=== PATIENT | male | born 1960 | race Two or more races ===

== ENCOUNTER 2024-10-11 14:52 | Inpatient (IN) | payer OTHER ==
[~2024-10-11] VITALS: Ht 172.7 cm; Wt 89.8 kg
[~2024-10-11 14:52] MED LIST: GLIMEPIRIDE4 MG; LOSARTAN POTASS50 MG; METFORMIN HCL1000 M2 PO
[2024-10-11] MEDS ORDERED: SYNTHROID150 MCG PO (15:29)
[2024-10-11] MEDS ORDERED: FARXIGA10 MG PO (15:30)
[2024-10-11] MEDS ORDERED: 0.9 % SODIUM CHLORIDE 1,000 ML IV SCH (15:46)
[2024-10-11 16:15] LABS: HEMATOCRIT 40.4 % (39.0-48.0); HEMOGLOBIN 14.5 g/dL (13-16.00); MEAN CELL VOLUME 94.7 fL (80.0-100.00); MEAN CORPUSCULAR HEMOGLOBIN 33.9 pg (27.00-32.0); MEAN CORPUSCULAR HGB CONC 35.8 g/dl (32.0-36.0); RED BLOOD COUNT 4.26 M/uL (4.00-6.00); RED CELL DISTRIBUTION WIDTH 13.9 % (11.5-14.5)
[2024-10-11 16:35] LABS: INR 1.05; PARTIAL THROMBOPLASTIN TIME 26.1 SECONDS (22.0-34.0); PROTHROMBIN TIME 11.4 SECONDS (9.0-11.5)
[2024-10-11 16:41] LABS: ALBUMIN 4.2 gm/dL (3.4-5.0); BILIRUBIN TOTAL 1.28 mg/dL (0.3-1.2); CALCIUM 9.6 mg/dL (8.5-10.1); CREATININE SERUM 0.86 mg/dL (0.70-1.30); GFR 89.53; GLOBULINA 3.2 G/DL (2.4-3.5); POTASSIUM 3.84 mEq/L (3.5-5.1); TOTAL PROTEIN 7.4 gm/dL (6.4-8.2)
[2024-10-11 16:50] LABS: PLATELET COUNT 105 K/uL (150-450)
[2024-10-11] MEDS ORDERED: RINGERS SOLUTION,LACTATED 1,000 ML IV SCH (17:45)
[2024-10-11] MEDS ORDERED: POLYETHYLENE GLYCOL 3350 17 GM BLIST.PACK PO ONE (18:00)
[2024-10-11 18:36] VITALS: BP 149/77; O2SAT 100
[2024-10-11 20:18] LABS: COL EPI 94 SECONDS (82-175)
[2024-10-12 00:42] VITALS: BP 129/60; O2SAT 96
[2024-10-12 05:27] VITALS: O2SAT 98
[2024-10-12] MEDS ORDERED: CEFTRIAXONE SODIUM 2,000 MG VIAL IV ONE (12:45)
[2024-10-12] MEDS ORDERED: METRONIDAZOLE/SODIUM CHLORIDE 500 MG/100 ML PIGGYBACK IV ONE (12:45)
[2024-10-12] MEDS ORDERED: MORPHINE SULFATE 4 MG/ML CARTRIDGE IV PRN (13:30)
[2024-10-12] MEDS ORDERED: ONDANSETRON HCL 2 MG/ML VIAL IV PRN (13:30)
[2024-10-12] MEDS ORDERED: RINGERS SOLUTION,LACTATED 1,000 ML IV SCH (13:30)
[2024-10-12] MEDS ORDERED: OxyCODONE HCL 5 MG TABLET (ROXICODONE) PO PRN (13:30)
[2024-10-12] MEDS ORDERED: MORPHINE SULFATE 4 MG/ML VIAL IV ONE ×2 (14:05→14:35)
[2024-10-12] MEDS ORDERED: MORPHINE SULFATE 2 MG/ML CARTRIDGE IV ONE (15:50)
[2024-10-12 16:50] VITALS: BP 122/58; O2SAT 96
[2024-10-12] MEDS ORDERED: METRONIDAZOLE/SODIUM CHLORIDE 500 MG/100 ML PIGGYBACK IV SCH (17:00)
[2024-10-12] MEDS ORDERED: GABAPENTIN 300 MG CAPSULE PO SCH (17:00)
[2024-10-12] MEDS ORDERED: HYOSCYAMINE SULFATE 0.125 MG TAB.SUBL SL SCH (17:00)
[2024-10-12] MEDS ORDERED: TAMSULOSIN HCL 0.4 MG CAP PO SCH (17:00)
[2024-10-12] MEDS ORDERED: FAMOTIDINE/PF 20 MG/2 ML VIAL IV PUSH SCH (17:00)
[2024-10-12] MEDS ORDERED: LACTOBACILLUS ACIDOPHILUS 1 CAP CAP PO SCH (17:00)
[2024-10-12 17:08] LABS: HEMATOCRIT 39.8 % (39.0-48.0); HEMOGLOBIN 13.6 g/dL (13-16.00); MEAN CELL VOLUME 96.7 fL (80.0-100.00); MEAN CORPUSCULAR HGB CONC 34.1 g/dl (32.0-36.0); RED BLOOD COUNT 4.12 M/uL (4.00-6.00); RED CELL DISTRIBUTION WIDTH 13.7 % (11.5-14.5)
[2024-10-12 17:12] LABS: PLATELET COUNT 88 K/uL (150-450)
[2024-10-12] MEDS ORDERED: ACETAMINOPHEN 500 MG GEL..CAP PO SCH (18:00)
[2024-10-12] MEDS ORDERED: CIPROFLOXACIN IN 5 % DEXTROSE 400 MG/200 ML PIGGYBAG IV SCH (21:00)
[2024-10-12 21:36] VITALS: O2SAT 97
[2024-10-12 23:59] VITALS: O2SAT 93
[2024-10-13] VITALS (9 sets, daily range): BP systolic 126–136; BP diastolic 61–65; O2SAT 90–99
[2024-10-13] MEDS ORDERED: INSULIN LISPRO 1,000 UNIT/10 ML UNITS SUBCUTANEO PRN (01:45)
[2024-10-13] MEDS ORDERED: DEXTROSE 50 % IN WATER 0.5 G/ML DISP.SYRIN IV PRN (01:45)
[2024-10-13 07:58] LABS: HEMATOCRIT 38.5 % (39.0-48.0); HEMOGLOBIN 13.6 g/dL (13-16.00); MEAN CELL VOLUME 95.4 fL (80.0-100.00); MEAN CORPUSCULAR HEMOGLOBIN 33.8 pg (27.00-32.0); MEAN CORPUSCULAR HGB CONC 35.4 g/dl (32.0-36.0); RED BLOOD COUNT 4.03 M/uL (4.00-6.00); RED CELL DISTRIBUTION WIDTH 13.5 % (11.5-14.5)
[2024-10-13 08:27] LABS: ALBUMIN 3.3 gm/dL (3.4-5.0); CALCIUM 8.4 mg/dL (8.5-10.1); CREATININE SERUM 0.94 mg/dL (0.70-1.30); GFR 80.79; MAGNESIUM 1.7 mg/dL (1.8-2.4); PHOSPHOROUS 3.6 mg/dL (2.5-4.9); POTASSIUM 4.49 mEq/L (3.5-5.1)
[2024-10-13 09:05] LABS: PLATELET COUNT 106 K/uL (150-450)
[2024-10-13] MEDS ORDERED: LEVOTHYROXINE SODIUM 100 MCG TABLET PO NR (12:15)
[2024-10-13] MEDS ORDERED: ENOXAPARIN SODIUM 40 MG/0.4 ML SYRINGE SUBCUTANEO SCH (17:00)
[2024-10-14 00:45] VITALS: BP 115/67; O2SAT 97
[2024-10-14 04:19] VITALS: O2SAT 90
[2024-10-14] MEDS ORDERED: LEVOTHYROXINE SODIUM 100 MCG TABLET PO SCH (06:00)
[2024-10-14] MEDS ORDERED: LEVOTHYROXINE SODIUM 125 MCG TABLET PO SCH (06:00)
[2024-10-14 08:00] VITALS: BP 144/73; O2SAT 99
[2024-10-14] MEDS ORDERED: LOSARTAN POTASSIUM 50 MG TABLET PO SCH (09:00)
[2024-10-14] MEDS ORDERED: ENOXAPARIN SODIUM 40 MG/0.4 ML SYRINGE SUBCUTANEO SCH (09:00)
[2024-10-14 16:00] VITALS: BP 136/65; O2SAT 99
[2024-10-14] MEDS ORDERED: POLYETHYLENE GLYCOL 3350 17 GM BLIST.PACK PO SCH (17:00)
[2024-10-14 21:00] VITALS: O2SAT 96
[2024-10-15 00:13] VITALS: BP 118/65; O2SAT 98
[2024-10-15 00:15] VITALS: O2SAT 90
[2024-10-15 02:54] VITALS: O2SAT 97
[2024-10-15 07:44] LABS: HEMATOCRIT 33.7 % (39.0-48.0); HEMOGLOBIN 12.1 g/dL (13-16.00); MEAN CELL VOLUME 94.8 fL (80.0-100.00); MEAN CORPUSCULAR HEMOGLOBIN 34.2 pg (27.00-32.0); RED BLOOD COUNT 3.55 M/uL (4.00-6.00); RED CELL DISTRIBUTION WIDTH 13.3 % (11.5-14.5)
[2024-10-15 07:50] LABS: PLATELET COUNT 69 K/uL (150-450)
[2024-10-15 08:00] VITALS: BP 133/85; O2SAT 96
[2024-10-15 08:29] LABS: ALBUMIN 2.9 gm/dL (3.4-5.0); BILIRUBIN TOTAL 1.76 mg/dL (0.3-1.2); CALCIUM 8.2 mg/dL (8.5-10.1); CREATININE SERUM 0.73 mg/dL (0.70-1.30); GFR 108.17; MAGNESIUM 1.6 mg/dL (1.8-2.4); POTASSIUM 4.05 mEq/L (3.5-5.1); TOTAL PROTEIN 4.9 gm/dL (6.4-8.2)
[2024-10-15 08:51] LABS: PHOSPHOROUS 1.9 mg/dL (2.5-4.9)
[2024-10-15] MEDS ORDERED: POTASSIUM PHOS,M-BASIC-D-BASIC 3 MM/ML VIAL IV NR (09:45)
[2024-10-15] MEDS ORDERED: TAMS0.4C PO (09:46)
[2024-10-15] MEDS ORDERED: INTESTINEX680 M1 PO (09:47)
[2024-10-15] MEDS ORDERED: HYOSCYAMINE0.125 M1 SL (09:47)
== END 2024-10-15 16:26 | disposition home or self-care (01) | DRG 331 ==
LOC: ER 14:54 → EDBD 14:54 → ER 14:54 → SURH 18:40
PROVIDERS: Emergency Medicine; Internal Medicine; ADMIT Surgery; ATTEND Surgery
PROC: 0DBP4ZZ Excision of Rectum, Percutaneous Endoscopic Approach (ICD-10-PCS; 2024-10-12)
PROC: 07BB4ZZ Excision of Mesenteric Lymphatic, Percutaneous Endoscopic Approach (ICD-10-PCS; 2024-10-12)
PROC: 07BC4ZZ Excision of Pelvis Lymphatic, Percutaneous Endoscopic Approach (ICD-10-PCS; 2024-10-12)
PROC: 0DNW4ZZ Release Peritoneum, Percutaneous Endoscopic Approach (ICD-10-PCS; 2024-10-12)
PROC: 0DJD8ZZ Inspection of Lower Intestinal Tract, Via Natural or Artificial Opening Endoscopic (ICD-10-PCS; 2024-10-12)
PROC: 4A12X4Z Monitoring of Cardiac Electrical Activity, External Approach (ICD-10-PCS; 2024-10-12)
PROC: 0DTN4ZZ Resection of Sigmoid Colon, Percutaneous Endoscopic Approach (ICD-10-PCS; principal; 2024-10-12 14:00)
DX: C20 Malignant neoplasm of rectum (principal); R59.0 Localized enlarged lymph nodes; K66.0 Peritoneal adhesions (postprocedural) (postinfection); D69.6 Thrombocytopenia, unspecified; E83.42 Hypomagnesemia; K74.60 Unspecified cirrhosis of liver; E11.9 Type 2 diabetes mellitus without complications; I10 Essential (primary) hypertension; E03.9 Hypothyroidism, unspecified; Z79.84 Long term (current) use of oral hypoglycemic drugs

== ENCOUNTER 2024-11-15 05:28 | Day surgery (SDC) | payer OTHER ==
[2024-11-12 14:19] VITALS: BP 126/83
[~2024-11-15] VITALS: Ht 172.7 cm; Wt 83.9 kg
[~2024-11-15 05:28] MED LIST changes: +FARXIGA10 MG PO; +HYOSCYAMINE0.125 M1 SL; +INTESTINEX680 M1 PO; +SYNTHROID150 MCG PO; +TAMS0.4C PO
[2024-11-15] MEDS ORDERED: CEFAZOLIN SODIUM 1,000 MG VIAL ONE (08:21)
[2024-11-15] MEDS ORDERED: HEPARIN SODIUM,PORCINE/PF 100 UNIT/ML SYRINGE IV ONE (08:23)
[2024-11-15] MEDS ORDERED: BUPIVACAINE HCL/MPF 0.5% 30ML VIAL ONE (08:28)
[2024-11-15] MEDS ORDERED: TRAM1TAB98 PO (08:29)
[2024-11-15] MEDS ORDERED: BUPIVACAINE HCL 30 ML VIAL IJ ONE (09:00)
[2024-11-15] MEDS ORDERED: LIDOCAINE HCL 1%/EPINEPHRINE 20ML VIAL IJ ONE (09:00)
[2024-11-15] MEDS ORDERED: CEFAZOLIN SODIUM 1,000 MG VIAL IV ONE (09:00)
== END 2024-11-15 11:15 | disposition home or self-care (01) ==
LOC: CIR.AMB 05:28
PROVIDERS: ATTEND Surgery
DX: C20 Malignant neoplasm of rectum (principal); Z88.2 Allergy status to sulfonamides; I10 Essential (primary) hypertension; E11.9 Type 2 diabetes mellitus without complications; E03.8 Other specified hypothyroidism

== ENCOUNTER 2025-01-09 17:30 | Inpatient (IN) | payer OTHER ==
[~2025-01-09] VITALS: Ht 172.7 cm; Wt 74.4 kg
[~2025-01-09 17:30] MED LIST changes: +TRAM1TAB98 PO
[2025-01-09] MEDS ORDERED: 0.9 % SODIUM CHLORIDE 1,000 ML IV SCH (19:30)
[2025-01-09 20:40] LABS: HEMATOCRIT 33.6 % (39.0-48.0); MEAN CELL VOLUME 94.8 fL (80.0-100.00); MEAN CORPUSCULAR HEMOGLOBIN 33.9 pg (27.00-32.0); MEAN CORPUSCULAR HGB CONC 35.8 g/dl (32.0-36.0); RED BLOOD COUNT 3.54 M/uL (4.00-6.00)
[2025-01-09] MEDS ORDERED: BARIUM SULFATE 450 ML ORAL.SUSP PO ONE (20:42)
[2025-01-09 20:52] LABS: ALBUMIN 2.7 gm/dL (3.4-5.0); BILIRUBIN TOTAL 2.02 mg/dL (0.3-1.2); CALCIUM 8.1 mg/dL (8.5-10.1); CREATININE SERUM 0.65 mg/dL (0.70-1.30); GFR 123.28; GLOBULINA 2.6 G/DL (2.4-3.5); POTASSIUM 3.37 mEq/L (3.5-5.1); TOTAL PROTEIN 5.3 gm/dL (6.4-8.2)
[2025-01-09 21:14] LABS: PLATELET COUNT 115 K/uL (150-450); RED CELL DISTRIBUTION WIDTH 16.6 % (11.5-14.5)
[2025-01-10] MEDS ORDERED: PIPERACILLIN/TAZOBACTAM SODIUM 3.375 GM in 0.9 % SODIUM CHLORIDE 100 ML IV SCH (02:50)
[2025-01-10] MEDS ORDERED: ENOXAPARIN SODIUM 80 MG/0.8 ML SYRINGE SUBCUTANEO STA (02:50)
[2025-01-10] MEDS ORDERED: MEPERIDINE HCL/PF 50 MG/ML VIAL IM PRN (03:00)
[2025-01-10] MEDS ORDERED: ENOXAPARIN SODIUM 80 MG/0.8 ML SYRINGE SUBCUTANEO ONE (03:04)
[2025-01-10] MEDS ORDERED: PIPERACILLIN/TAZOBACTAM SODIUM 3.375 GM VIAL IV ONE (03:04)
[2025-01-10] MEDS ORDERED: FLUCONAZOLE 150 MG TABLET PO SCH (12:08)
[2025-01-10] MEDS ORDERED: ONDANSETRON HCL 2 MG/ML VIAL IV PRN (12:15)
[2025-01-10] MEDS ORDERED: DIPHENHYDRAMINE HCL 50 MG/ML VIAL 1ML IV ONE (13:00)
[2025-01-10] MEDS ORDERED: HYOSCYAMINE SULFATE 0.125 MG TAB.SUBL SL SCH (13:00)
[2025-01-10] MEDS ORDERED: fentaNYL CITRATE 50 MCG/ML AMPUL IV ONE (13:00)
[2025-01-10] MEDS ORDERED: MIDAZOLAM HCL 2 MG/2 ML VIAL IV ONE (13:00)
[2025-01-10] MEDS ORDERED: ANIDULAFUNGIN 100 MG VIAL IV NR (16:00)
[2025-01-10] MEDS ORDERED: PANTOPRAZOLE SODIUM 40 MG/VIAL VIAL IV SCH (17:00)
[2025-01-10 17:10] VITALS: BP 104/55; O2SAT 99
[2025-01-10 18:22] LABS: URINE APPEARANCE Clear; URINE BILIRRUBIN Negative (NEGATIVE); URINE BLOOD Negative; URINE COLOR Yellow; URINE LEUKOCYTE Negative; URINE NITRATE Negative; URINE PROTEIN Negative (NEGATIVE)
[2025-01-10 18:25] LABS: URINE BACTERIA 7.3 uL (0.0-1933); URINE EPITHELIAL CELLS 3.6 uL (0.0-38.8); URINE RBC 2.9 uL (0.0-20.8)
[2025-01-10 18:29] LABS: URINE GLUCOSE >=1000 MG/DL (NEGATIVE); URINE KETONE 80 (NEGATIVE); URINE WBC 1.5 uL (0.0-23.2)
[2025-01-11 00:28] VITALS: BP 115/64; O2SAT 96
[2025-01-11 06:52] LABS: HEMATOCRIT 32.6 % (39.0-48.0); HEMOGLOBIN 11.8 g/dL (13-16.00); MEAN CELL VOLUME 96.6 fL (80.0-100.00); MEAN CORPUSCULAR HEMOGLOBIN 34.9 pg (27.00-32.0); MEAN CORPUSCULAR HGB CONC 36.1 g/dl (32.0-36.0); RED BLOOD COUNT 3.38 M/uL (4.00-6.00); RED CELL DISTRIBUTION WIDTH 17.9 % (11.5-14.5)
[2025-01-11 07:06] LABS: PLATELET COUNT 101 K/uL (150-450)
[2025-01-11 07:09] LABS: ALBUMIN 2.3 gm/dL (3.4-5.0); BILIRUBIN TOTAL 1.44 mg/dL (0.3-1.2); CALCIUM 7.6 mg/dL (8.5-10.1); CREATININE SERUM 0.59 mg/dL (0.70-1.30); GFR 137.86; MAGNESIUM 1.7 mg/dL (1.8-2.4); PHOSPHOROUS 3.3 mg/dL (2.5-4.9); POTASSIUM 3.58 mEq/L (3.5-5.1); TOTAL PROTEIN 4.3 gm/dL (6.4-8.2)
[2025-01-11] MEDS ORDERED: DEXTROSE 50 % IN WATER 0.5 G/ML DISP.SYRIN IV PRN (07:15)
[2025-01-11] MEDS ORDERED: INSULIN LISPRO 1,000 UNIT/10 ML UNITS SUBCUTANEO PRN (07:15)
[2025-01-11 07:19] LABS: C-REACTIVE PROTEIN 2.02 MG/DL (0.00-0.29)
[2025-01-11 07:31] LABS: AMYLASE 74 U/L (25-115); LIPASE 40 U/L (13-75)
[2025-01-11 08:00] VITALS: BP 131/79; O2SAT 98
[2025-01-11 14:57] LABS: URINE APPEARANCE Clear; URINE BILIRRUBIN Negative (NEGATIVE); URINE BLOOD Negative; URINE COLOR Yellow; URINE LEUKOCYTE Negative; URINE NITRATE Negative; URINE PROTEIN Negative (NEGATIVE); URINE UROBILINOGEN 0.2 E.U./dl
[2025-01-11] MEDS ORDERED: DIBUCAINE 30 GM TUBE TOP ONE (15:00)
[2025-01-11 15:01] LABS: URINE RBC 3.6 uL (0.0-20.8); URINE WBC 2.2 uL (0.0-23.2)
[2025-01-11 15:36] LABS: URINE BACTERIA 2.4 uL (0.0-1933); URINE CAST 0.14 uL (0.0-1.40); URINE EPITHELIAL CELLS 1.2 uL (0.0-38.8); URINE GLUCOSE >=1000 MG/DL (NEGATIVE); URINE KETONE 40 (NEGATIVE)
[2025-01-11 16:32] VITALS: BP 123/74; O2SAT 99
[2025-01-11] MEDS ORDERED: POLYETHYLENE GLYCOL 3350 17 GM BLIST.PACK PO SCH (17:00)
[2025-01-11] MEDS ORDERED: LACTOBACILLUS ACIDOPHILUS 1 CAP CAP PO SCH (17:00)
[2025-01-11] MEDS ORDERED: HYDROCORTISONE ACETATE 25 MG/SUPP.RECT SUPP.RECT RECTAL SCH (17:00)
[2025-01-11] MEDS ORDERED: ANIDULAFUNGIN 100 MG VIAL IV SCH (17:00)
[2025-01-11] MEDS ORDERED: ENOXAPARIN SODIUM 40 MG/0.4 ML SYRINGE SUBCUTANEO SCH (17:00)
[2025-01-11 17:14] VITALS: BP 107/68; O2SAT 97
[2025-01-11] MEDS ORDERED: DIPHENHYDRAMINE HCL 50 MG/ML VIAL 1ML ONE (17:20)
[2025-01-11] MEDS ORDERED: DIPHENHYDRAMINE HCL 50 MG/ML VIAL 1ML IV STA (17:21)
[2025-01-12 00:25] VITALS: BP 114/66; O2SAT 98
[2025-01-12] MEDS ORDERED: LEVOTHYROXINE SODIUM 125 MCG TABLET PO SCH (06:00)
[2025-01-12 08:52] VITALS: BP 144/74; O2SAT 100
[2025-01-12 16:00] VITALS: BP 121/67; O2SAT 98
[2025-01-12] MEDS ORDERED: DIPHENHYDRAMINE HCL 50 MG/ML VIAL 1ML IV SCH (17:00)
[2025-01-12] MEDS ORDERED: METHYLPREDNISOLONE SOD SUCC 40 MG VIAL ONE (18:51)
[2025-01-12] MEDS ORDERED: METHYLPREDNISOLONE SOD SUCC 40 MG VIAL IV STA (18:51)
[2025-01-12] MEDS ORDERED: AMINO ACIDS/PROTEIN HYDROLYS 30 ML BLIST.PACK PO SCH (19:08)
[2025-01-12] MEDS ORDERED: FLUCONAZOLE 40 MG/ML SUSP.RECON PO ONE (19:15)
[2025-01-12] MEDS ORDERED: INSULIN GLARGINE,HUM.REC.ANLOG 1,000 UNITS/10 ML UNITS SUBCUTANEO ONE (20:49)
[2025-01-12] MEDS ORDERED: FLUCONAZOLE IN NACL,ISO-OSM 400 MG/200 ML PIGGYBAG IV ONE ×2 (20:53→21:00)
[2025-01-12] MEDS ORDERED: INSULIN GLARGINE,HUM.REC.ANLOG 1,000 UNITS/10 ML UNITS SUBCUTANEO SCH (21:00)
[2025-01-13] VITALS: BP 128/75; O2SAT 96
[2025-01-13 08:10] LABS: INR 1.14; PARTIAL THROMBOPLASTIN TIME 24.6 SECONDS (22.0-34.0); PROTHROMBIN TIME 12.3 SECONDS (9.0-11.5)
[2025-01-13 08:12] LABS: ALBUMIN 2.3 gm/dL (3.4-5.0); BILIRUBIN TOTAL 1.01 mg/dL (0.3-1.2); CALCIUM 7.9 mg/dL (8.5-10.1); CREATININE SERUM 0.61 mg/dL (0.70-1.30); GFR 132.66; GLOBULINA 2.1 G/DL (2.4-3.5); MAGNESIUM 1.6 mg/dL (1.8-2.4); PHOSPHOROUS 2.9 mg/dL (2.5-4.9); POTASSIUM 4.19 mEq/L (3.5-5.1); TOTAL PROTEIN 4.4 gm/dL (6.4-8.2)
[2025-01-13 08:54] LABS: HEMATOCRIT 32.2 % (39.0-48.0); HEMOGLOBIN 11.5 g/dL (13-16.00); MEAN CELL VOLUME 97.6 fL (80.0-100.00); MEAN CORPUSCULAR HEMOGLOBIN 34.9 pg (27.00-32.0); MEAN CORPUSCULAR HGB CONC 35.7 g/dl (32.0-36.0); RED CELL DISTRIBUTION WIDTH 20.7 % (11.5-14.5)
[2025-01-13 09:03] VITALS: BP 115/69; O2SAT 96
[2025-01-13 09:03] LABS: PLATELET COUNT 107 K/uL (150-450)
[2025-01-13] MEDS ORDERED: MAGNESIUM SULFATE IN WATER 50 ML IV NR (13:00)
[2025-01-13 16:00] VITALS: BP 140/76; O2SAT 100
[2025-01-13] MEDS ORDERED: FLUCONAZOLE IN NACL,ISO-OSM 100 ML IV SCH (21:00)
[2025-01-14] VITALS: BP 107/63; O2SAT 97
[2025-01-14 08:00] VITALS: BP 109/66; O2SAT 98
[2025-01-14] MEDS ORDERED: PROTONIX40 MG PO (13:26)
[2025-01-14] MEDS ORDERED: INTESTINEX680 M1 PO (13:26)
== END 2025-01-14 14:39 | disposition home or self-care (01) | DRG 384 ==
LOC: ER 17:32 → O/R 01-10 09:19 → SEC-K 01-10 09:19 → O/R 01-10 10:02 → SURG 01-10 12:45 → SURH 01-10 17:32
PROVIDERS: General Practice; Internal Medicine; Internal Medicine Infectious Disease; ADMIT Surgery; ATTEND Surgery
PROC: BW21YZZ Computerized Tomography (CT Scan) of Abdomen and Pelvis using Other Contrast (ICD-10-PCS; principal; 2025-01-09)
PROC: 0DJD8ZZ Inspection of Lower Intestinal Tract, Via Natural or Artificial Opening Endoscopic (ICD-10-PCS; 2025-01-10)
PROC: 0DB98ZX Excision of Duodenum, Via Natural or Artificial Opening Endoscopic, Diagnostic (ICD-10-PCS; 2025-01-10)
PROC: 0DB78ZX Excision of Stomach, Pylorus, Via Natural or Artificial Opening Endoscopic, Diagnostic (ICD-10-PCS; 2025-01-10)
PROC: 0DB58ZX Excision of Esophagus, Via Natural or Artificial Opening Endoscopic, Diagnostic (ICD-10-PCS; 2025-01-10)
DX: K25.9 Gastric ulcer, unspecified as acute or chronic, without hemorrhage or perforation (principal); B37.81 Candidal esophagitis; K57.90 Diverticulosis of intestine, part unspecified, without perforation or abscess without bleeding; K64.8 Other hemorrhoids; K76.89 Other specified diseases of liver; E11.9 Type 2 diabetes mellitus without complications; I10 Essential (primary) hypertension; Z85.048 Personal history of other malignant neoplasm of rectum, rectosigmoid junction, and anus; K29.80 Duodenitis without bleeding; Z79.4 Long term (current) use of insulin

== ENCOUNTER → 2025-04-17 | Emergency (ER) | payer OTHER ==
[~2025-04-17] VITALS: Ht 172.7 cm; Wt 90.7 kg
[~2025-04-17] MED LIST changes: +0.9 % SODIUM CHLORIDE 1,000 ML IV ONE; +CARVEDILOL25 MG; +INSULIN REGULAR, HUMAN 1,000 UNIT/10 ML UNITS IV ONE; +LIDOCAINE HCL 1% 10ML VIAL ONE; +PROTONIX40 MG PO
[2025-04-17 13:45] LABS: BASO % 1.4 % (0.1-1.2); EOS # 0.07 (0.04-0.54); EOS % 4.9 % (0.7-7.0); HEMATOCRIT 33.4 % (40.1-51.0); HEMOGLOBIN 11.6 g/dL (13.7-17.5); LYMPH # 0.32 (1.18-3.74); LYMPH % 22.5 % (19.3-53.1); MEAN CORPUSCULAR HEMOGLOBIN 33.6 pg (25.6-32.2); MONO # 0.26 (0.24-0.82); NEUT # 0.75 (1.56-6.13); NEUT % 52.9 % (34.0-71.1); RED BLOOD COUNT 3.45 M/uL (4.63-6.08); RED CELL DISTRIBUTION WIDTH 14.2 % (11.6-14.4)
[2025-04-17 13:48] LABS: MONO % 18.3 % (4.7-12.5)
[2025-04-17 13:49] LABS: PLATELET COUNT 65 K/uL (163-369)
[2025-04-17 14:10] LABS: INR 1.12; PARTIAL THROMBOPLASTIN TIME 24.6 SECONDS (22.0-34.0); PROTHROMBIN TIME 12.1 SECONDS (9.0-11.5)
[2025-04-17 14:52] LABS: ALBUMIN 3.1 gm/dL (3.4-5.0); BILIRUBIN TOTAL 1.65 mg/dL (0.3-1.2); CALCIUM 8.5 mg/dL (8.5-10.1); CREATININE SERUM 0.77 mg/dL (0.70-1.30); GFR 101.39; GLOBULINA 2.3 G/DL (2.4-3.5); POTASSIUM 4.02 mEq/L (3.5-5.1); TOTAL PROTEIN 5.4 gm/dL (6.4-8.2)
[2025-04-17 15:22] LABS: URINE APPEARANCE Clear; URINE BILIRRUBIN Negative (NEGATIVE); URINE BLOOD Negative; URINE COLOR Yellow; URINE KETONE Negative (NEGATIVE); URINE LEUKOCYTE Negative; URINE NITRATE Negative; URINE PROTEIN Negative (NEGATIVE); URINE UROBILINOGEN 0.2 E.U./dl
[2025-04-17 15:27] LABS: URINE EPITHELIAL CELLS 3.9 uL (0.0-38.8); URINE WBC 2.8 uL (0.0-23.2)
[2025-04-17 15:35] LABS: URINE BACTERIA 3.6 uL (0.0-1933); URINE CAST 0.29 uL (0.0-1.40); URINE GLUCOSE >=1000 MG/DL (NEGATIVE); URINE RBC 1.1 uL (0.0-20.8)
== END | disposition home or self-care (01) ==
LOC: ER 12:22
PROVIDERS: General Practice
DX: R55 Syncope and collapse (principal); I10 Essential (primary) hypertension; E11.9 Type 2 diabetes mellitus without complications; Z79.84 Long term (current) use of oral hypoglycemic drugs; Z88.2 Allergy status to sulfonamides